=== PATIENT | female | born 1935 | race Caucasian/White ===

== ENCOUNTER → 2022-07-30 | Outpatient (CLI) | payer MEDICARE, OTHER | END | disposition short-term general hospital (02) | LOC: EMS 12:30 | DX: M25.552 Pain in left hip (principal); W01.0XXA Fall on same level from slipping, tripping and stumbling without subsequent striking against object, initial encounter; Y92.008 Other place in unspecified non-institutional (private) residence as the place of occurrence of the external cause | CPT/HCPCS: A0425; A0429; A0888 ==

== ENCOUNTER 2023-02-02 17:17 | Emergency (ER) | payer MEDICARE, OTHER ==
--- NOTE | 2023-02-02 18:03 | CT Report ---
PROCEDURE: HEAD WO INDICATIONS: headache x 5 days TECHNIQUE: Noncontrast 4.5 mm thick angled axial sections acquired from the foramen magnum to the vertex. For r adiation dose reduction, the following was used: automated exposure control, adjustment of mA and/or kV according to patient size. COMPARISON: None. FINDINGS: Image quality: Excellent. CSF spaces: Basal cisterns are patent. No extra-axial fluid collections. Ventricles are normal in size and shape. Brain: No midline shift. No intracranial masses or hemorrhage. Larose-white matter interface is norm al. Skull and face: Calvarium and visualized facial bones are intact, without suspicious lesions. Sinuses: Visualized sinuses and mastoids are clear. IMPRESSION: No acute intracranial abnormality. Reviewed by: Nikolas Goetz MD on 02/02/2023 6:02 PM PDT Approved by: Nikolas Goetz MD on 02/02/2023 6:02 PM PDT Station ID: [id number]
[2023-02-02] MEDS ORDERED: cloNIDine 0.1 MG TABLET PO STA (18:29)
--- NOTE | 2023-02-02 18:29 | ED Physician Documentation ---
PD HPI HEADACHE - Stated complaint Stated Complaint: HEAD PX - Chief complaint Chief Complaint: Neuro - History of Present Illness Worst headache ever?: Worst headache ever? (No) Location: Front Quality: Throbbing, Aching Associated symptoms: No: Fever, Stiff neck, Nausea, Vomiting, Weakness, Numbness, Syncope, Seizure, Eye pain, Vision changes, Other Improved by: Meds Worsened by: No: Light, Noise, Moving, Other Contributing factors: No: Anticoagulated, Possible carbon monoxide, Hyperten alcon, Other, Recent illness, Trauma Similar symptoms before: Diagnosis Recently seen: Clinic - Additional information Additional information: This is an 87-year-old female who presents from the clinic where she was seen for a headache. Patient has a history of headaches but this 1 is reported to be more severe than normal and not going away with her regular Tylenol use. She states it started about 5 days ago and it is across the Forehead bilaterally. She has no associated symptoms and no neurologic changes, including negative fever, chills, cough or URI symptoms, chest pain or difficulty breathing, abdominal pain nausea vomiting or diarrhea, no urinary symptoms. She has no neck pain or stiffness. She has no confusion or alteration in mental status, no facial droop or facial numbness or tingling, no extremity weakness, no ataxia or dizziness. She has been taking extra strength Tylenol, up to 3 to 4 g total a day, has not taken other medication for this issue. She denies thunderclap type headache or the worst headache of her life though this morning is "different" than her usual headaches though she cannot tell me why other than its longer in duration. The patient does endorse a lot of stress recently, and feels anxious.She is on medication for her blood pressure, 25 mg of losartan daily which she has been taking. She is unsure if her blood pressure has been elevated and believes it is elevated today because she is stressed out from being here and is uncomfortable Review of Systems Constitutional: reports: Reviewed and negative Eyes: reports: Reviewed and negative Ears: reports: Reviewed and negative Nose: reports: Reviewed and negative Throat: reports: Reviewed and negative Cardiac: reports: Reviewed and negative Respiratory: reports: Reviewed and negative GI: reports: Reviewed and negative : reports: Reviewed and negative Skin: reports: Reviewed and negative Musculoskeletal: reports: Reviewed and negative Neurologic: reports: Headache. denies: Generalized weakness, Focal weakness, Numbness, Difficulty speaking, Near syncope, Syncope, Seizure, Confused, Altered mental status, Unresponsive, Head injury, LOC PD PAST MEDICAL HISTORY - Past Medical History Past Medical History: Yes Neuro: Headaches - Present Medications Home Medications: Ambulatory Orders Medication Instructions Recorded Confirmed Acetaminophen [Tylenol] 500 mg PO Q6HR PRN 02/02/23 02/02/23 Levothyroxine [Synthroid] 125 mcg PO QDAC 02/02/23 02/02/23 Losartan Potassium 25 mg PO DAILY 02/02/23 02/02/23 Losartan [Cozaar] 50 mg PO DAILY #30 tablet 02/02/23 Rosuvastatin Calcium [Crestor] 5 mg PO DAILY 02/02/23 02/02/23 traMADol [Ultram] 50 mg PO Q6H PRN #10 tablet 02/02/23 - Allergies Allergies/Adverse Reactions: Allergies Allergy/AdvReac Type Severity Reaction Status Date / Time No Known Drug Allergies Allergy Verified 02/02/23 17:31 PD ED PE NORMAL - Vitals Vital signs reviewed: Yes - General General: Alert and oriented X 3, No acute distress, Well developed/nourished - HEENT HEENT: Atraumatic, PERRL, EOMI, Ears normal, Moist mucous membranes, Pharynx benign - Neck Neck: Supple, no meningeal sign, No bony TTP, No adenopathy, No JVD, No bruit - Cardiac Cardiac: RRR, No murmur, No gallop, No rub - Respiratory Respiratory: No respiratory distress, Clear bilaterally - Abdomen Abdomen: Normal bowel sounds, Soft, Non tender, Non distended - Back Back: No CVA TTP, No spinal TTP - Derm Derm: Normal color, Warm and dry, No rash - Extremities Extremities: No deformity, No tenderness to palpate, Normal ROM s pain - Neuro Neuro: Alert and oriented X 3, diamond sander 2-12 intact, No motor deficit, No sensory deficit, Normal speech, Other (No ataxia, walks to the bathroom without difficulty) Eye Opening: Spontaneous Motor: Obeys Commands Verbal: Oriented GCS Score: 15 - Psych Psych: Other (Anxious affect, eager to leave.) Results - Vitals Vitals: Vital Signs - 24 hr 02/02/23 02/02/23 02/02/23 17:29 18:26 18:46 Temperature 37.1 C Heart Rate 71 64 66 Respiratory 16 18 16 Rate Blood Pressure 193/102 H 183/105 H 168/100 H O2 Saturation 100 98 100 02/02/23 19:58 Temperature Heart Rate 72 Respiratory 16 Rate Blood Pressure 167/110 H O2 Saturation 98 Oxygen O2 Source Room air - Rads (name of study) No standard instances Relevant Findings:: Final report received PD Medical Decision Making - ED course Complexity details: reviewed results, re-evaluated patient, considered differential, d/w patient ED course: 87-year-old female who presented with a headache for the past 5 days. She had no trauma no associated symptoms, no neurologic changes. We obtained a head CT prior to my evaluation and this was negative. On exam, the patient has a completely normal neurologic exam does somewhat anxious affect. She ambulated to the bathroom without difficulty, no ataxia. She did have quite elevated blood pressure on arrival here in the 190s over 100 region, patient states she does have a history of high blood pressure and had taken her Losartan today. I gave her a second dose of losartan Here as well Given her accelerated hypertension And also I gave her a dose of tramadol and she had improvement though not complete resolution of her headache. Her NIH stroke scale is 0 and I have low suspicion for stroke or intracranial hemorrhage given patient's reassuring exam and no thunderclap headache. She has no meningeal signs, no other viral symptoms. This may be related to her blood pressure versus her b lood pressure may be elevated secondary to headache. The patient was very eager to go and did not want to wait for any additional treatment and I do think she is stable for discharge home at this time but I would like her to follow-up with her primary doctor for her ongoing headache as well as to continue to monitor her blood pressure. I have given her an increase in her blood pressure medication to 50 mg a day and she should monitor blood pressure at home and see her PCP within the next week. The patient was also given 10 tablets of tramadol to help with headache. I advised her to take no more than 2 to 3 g of Tylenol a day, she can if her blood pressure is a little better start taking an occasional ibuprofen 2. I think she may have rebound headaches given her extensive Tylenol use And really encouraged her to cut back on this. Encouraged her to stay well-hydrated. I discussed return precautions if new or worsening symptoms. Departure - Departure Disposition: 01 Home, Self Care Clinical Impression: Headache Qualifiers: Headache type: tension-type Headache chronicity pattern: acute headache Intractability: not intractable Qualified Code(s): G44.209 - Tension-type headache, unspecified, not intractable Hypertension Qualifiers: Hypertension type: unspecified Qualified Code(s): I10 - Essential (primary) h ypertension Condition: Good Instructions: ED Headache Tension Prescriptions: Losartan [Cozaar] 50 mg PO DAILY #30 tablet traMADol [Ultram] 50 mg PO Q6H PRN #10 tablet PRN Reason: Headache Comments: You presented due to headache. You had no other neurologic symptoms. We obtained a head CT which was stable. Your blood pressure here was somewhat elevated, this may have been due to to pain But it is possible that the elevated blood pressure has also resulted in her headache. I recommend that we increase your losartan from 25 mg a day to 50 mg a day. You can take 2 of your home tablets to total 50 mg or I have prescribed a new prescription for 50 mg a day. Please monitor your blood pressure at home or make up an appointment with your primary doctor within the next week to recheck your blood pressure. I have also given you a few tablets of tramadol which is a stronger pain medication for your headache. I suspect this is a tension type headache due to a number of stressors that you have. Please try to stay well-hydrated and limit your total Tylenol intake to no more than 3 g of Tylenol a day. You can also take ibuprofen. Please follow-up with your primary doctor within the next week for the symptoms and if you develop any new neurologic symptoms, return to the ER. Discharge Date/Time: 02/02/23 19:59
[2023-02-02] MEDS ORDERED: traMADol 50 MG TABLET PO STA (18:53)
[2023-02-02] MEDS ORDERED: LOSARTAN 50 MG TABLET PO STA (18:53)
[2023-02-02 19:59] VITALS: BP 167/110
== END 2023-02-02 19:59 | disposition home or self-care (01) ==
LOC: ED 17:17
DX: G44.209 Tension-type headache, unspecified, not intractable (principal); I10 Essential (primary) hypertension
CPT/HCPCS: 70450; 99283; 99284; A9270